=== PATIENT | female | born 1950 | race Caucasian/White ===

== ENCOUNTER 2017-03-01 13:21 | Emergency (ER) | payer MEDICARE, MEDICAID ==
[~2017-03-01] VITALS: Ht 165.1 cm; Wt 71.2 kg
[2017-03-01 14:46] LABS: BASOPHIL % 0.4 % (0-2); PLATELET COUNT 291 x10^3mcL (130-400); RED CELL DISTRIBUTION WIDTH 14.1 % (11.5-14.5)
[2017-03-01 14:52] LABS: CALCIUM 8.6 mg/dL (8.5-10.1); CARBON DIOXIDE 30.1 mmol/L (21-32); CHLORIDE SERUM 106 mmol/L (98-107); CREATININE SERUM 0.8 mg/dL (0.6-1.0); GFR1 > 60 mL/min; GLUCOSE SERUM 122 mg/dL (74-106); POTASSIUM SERUM 3.3 mmol/L (3.5-5.1); SODIUM SERUM 143 mmol/L (136-145)
[2017-03-01 15:05] LABS: ALKALINE PHOSPHATASE 66 U/L (46-116); ALT/SGPT 23 U/L (14-59); AST/SGOT 23 U/L (15-37); BILIRUBIN TOTAL 0.4 mg/dL (0.20-1.00); T4(THYROXINE) 7.4 ug/dL (4.7-13.3); TOTAL PROTEIN, SERUM 7.2 g/dL (6.4-8.2)
[2017-03-01 15:10] LABS: ALBUMIN 3.3 g/dL (3.4-5.0); CHOLESTEROL 214 mg/dL (<200)
[2017-03-01 16:06] VITALS: BP 130/72
== END 2017-03-01 16:08 | disposition home or self-care (01) ==
LOC: ED 13:21
PROVIDERS: Emergency Medicine
DX: R04.0 Epistaxis (principal); I10 Essential (primary) hypertension; E87.6 Hypokalemia; E46 Unspecified protein-calorie malnutrition; E78.00 Pure hypercholesterolemia, unspecified; Z88.0 Allergy status to penicillin
CPT/HCPCS: 83880; J2270; J2274

== ENCOUNTER 2019-07-05 10:04 | Emergency (ER) | payer OTHER, MEDICAID ==
[~2019-07-05] VITALS: Ht 170.2 cm; Wt 72.1 kg
[2019-07-05 10:08] VITALS: Ht 170.2 cm; Wt 72.1 kg
[2019-07-05 12:08] VITALS: BP 120/62
== END 2019-07-05 12:08 | disposition home or self-care (01) ==
LOC: ED 10:04
DX: L29.9 Pruritus, unspecified (principal); I10 Essential (primary) hypertension; Z88.0 Allergy status to penicillin
CPT/HCPCS: J1100